=== PATIENT | female | born 1975 | race Caucasian/White ===

== ENCOUNTER 2018-01-01 14:59 | Emergency (ER) | payer OTHER ==
[2018-01-01 15:43] VITALS: BP 153/102
--- NOTE | 2018-01-01 16:28 | UC ---
Knee Pain HPI - HPI Summary HPI Summary: Per senior staff psychologist "Day 2 of left knee pain, no recall of injury." She noted sudden pain when she was walking yesetrday. walking on flat ground in sneakers. no trauma, no fall. no locking or giving out. noted swelling in that area. denies fever, chills, no bruising. -she has not had any issues with high blood pressure in the past as far she knows. -Pain 8 out of 10. -Has not taken ibuprofen and Advil or Aleve or any other medicines for the pain. She has not iced it. She has put topical sports cream on. - - History of Current Complaint Chief Complaint: UCLowerExtremity Stated Complaint: LEFT KNEE COMPLAINT Time Seen by Provider: 01/01/18 16:11 Hx Last Menstrual Period: 2 yrs ago Pain Intensity: 8 - Allergies/Home Medications Allergies/Adverse Reactions: Allergies Allergy/AdvReac Type Severity Reaction Status Date / Time Penicillins Allergy Rash Verified 01/01/18 15:33 Home Medications: Home Medications Citalopram TAB* [CeleXA TAB*] 40 mg PO DAILY 01/01/18 [History Confirmed ] Ibuprofen TAB* [Motrin TAB* 600 MG] 600 mg PO Q6H PRN 01/01/18 [History Confirmed 01/01/18] Topiramate 25 mg PO 01/01/18 [History] Topiramate 50 mg PO BEDTIME 01/01/18 [History Confirmed 01/01/18] Topiramate 100 mg PO BID 01/01/18 [History Confirmed 01/01/18] PMH/Surg Hx/FS Hx/Imm Hx - Surgical History Surgical History: None - Social History Alcohol Use: None Substance Use Type: None Smoking Status (MU): Never Smoked Tobacco Review of Systems Constitutional: Negative Skin: Negative Eyes: Negative ENT: Negative Respiratory: Negative Cardiovascular: Negative Gastrointestinal: Negative Genitourinary: Negative Motor: Negative Neurovascular: Negative Musculoskeletal: Arthralgia Neurological: Negative Psychological: Negative Is Patient Immunocompromised?: No All Other Systems Reviewed And Are Negative: Yes Physical Exam Triage Information Reviewed: Yes Appearance: Well-Appearing, No Pain Distress, Well-Nourished Vital Signs: Initial Vital Signs Temp 100.3 F 01/01/18 15:39 Pulse 66 01/01/18 15:39 Resp 16 01/01/18 15:39 BP 153/102 01/01/18 15:39 Pulse Ox 98 01/01/18 15:39 Vital Signs Reviewed: Yes Respiratory: Positive: Lungs clear Cardiovascular: Positive: RRR Musculoskeletal: Positive: Other: - left knee w/ medial effusion. very tender. cool to touch. no erythema. tender w/ flexion and exam is difficult d/t pain. no v/v laxity. Knee Pain Course/Dx - Course Course Of Treatment: xray: effusion, no frx. BP repeated w/ DBP 103. denies prior hx. -declines knee brace, prefers to use son's SHASHANK bandage. -avoid NSAIDs d/t BP. -declines OOW note for tomorrow, she is off the following 2 days - Differential Dx/Diagnosis Differential Diagnosis/HQI/PQRI: Bursitis, Cellulitis, Sprain, Strain Provider Diagnoses: left knee pain & effusion Discharge - Sign-Out/Discharge Documenting (check all that apply): Post-Discharge Follow Up - Discharge Plan Condition: Stable Disposition: HOME Patient Education Materials: Swollen Knee Joint (ED) Referrals: Nona Floyd MD [Primary Care Provider] - 3 Days Additional Instructions: -Recommend ice and rest for your knee. -extra strength tylenol is recommended, 2 tablets every 6-8 hrs as needed. -you can use your son's SHASHANK bandage to wrap your knee -follow up with the orthopedic doctor next week -avoid NSAIDs, salt and caffeine due to elevated blood pressure -make sure to follow up with your PCP on Thursday for elevated blood pressure. You may need meds if it is still high. - Billing Disposition and Condition Condition: STABLE Disposition: Home
--- NOTE | 2018-01-01 17:03 | RAD ---
INDICATION: Left knee pain. TECHNIQUE: 4 views of the left knee were obtained. FINDINGS: The bones are normal alignment. There is a small joint effusion present. No fracture is seen. Joint spaces appear maintained. IMPRESSION: SMALL JOINT EFFUSION, NO FRACTURE IS SEEN.
== END 2018-01-01 17:36 | disposition home or self-care (01) ==
LOC: UCCORT 14:59
DX: M25.562 Pain in left knee (principal); M25.462 Effusion, left knee; Z88.0 Allergy status to penicillin
CPT/HCPCS: 99212; G0463